=== PATIENT | female | born 1985 | race Caucasian/White ===

== ENCOUNTER 2018-10-10 11:26 | Inpatient (IN) | payer OTHER ==
--- NOTE | 2018-10-09 21:46 | PDGENHP ---
History and Physical - Chief Complaint RIGHT HIP PAIN - History of Present Illness 1. Bilateral~Femoroacetabular impingement (SATISH) Cam type, labral tear 2. Bilateral~Hip Dyplasia 3. 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 Jenns~right~hip pain started worsening in June 2018, with~some~recalled trauma or injury~(had to walk her horse 8 mi in barn boots on uneven surface), and with~some~previous complaints~for the year prior with lateral hip/knee pain. ~Yuryhas~a known history of hip dysplasia -- she was referred by Dr. Romano' s office for further evaluation. Presentation today is of~anterior~right~hip pain both superficial and deep with occasional C-shaped symptoms. ~The hip~does~wake her~at night and~does~click and catch on~her. Sitting~can be uncomfortable~for her.~Yurydoes not~report suffering from lower back pain episodes. Yuryhas~participated in physical therapy (January 2018-Jun 2018)~and has~tried other conservative measures including dry needling, rolfing, cupping.~She~has not~received sufficient symptomatic improvement. Yuryhas~utilized medication for pain management, including NSAID.~Yuryhas used medication intermittently since symptom onset. Yurydenies issues with the left~hip, though feels that it does get worn out as compensation for the right.~~ Yuryunderstands that~eneida~has a hip and pelvis problem which should be researched and wishes to get a better understanding of~her~hip status, followed by an establishment of a treatment strategy, hoping~eneida~would be able to get back to~her~well being active life. History: Past medical history:~~ None which is relevant~ Relevant familial history:~Dad - AK. Mom, Dad - stroke. Past surgical history:~ No. Surgery Anesthesia Year Outcome 1 Hemorrhoid removal General 2008 Good 2 Gum surgery Gas 2015 Infection Yurydenies problematic issues with general anesthesia in the past. I have reviewed, verified and agree with the past medical, surgical, family and social history. Current Medications:~has a current medication list which includes the following prescription(s): codeine-guaifenesin 10-100 mg per 5 ml. ALLERGIES:~is allergic to penicillins. Objective: Physical Examination: Yuryis 5~feet~5~inches tall and weighs~147~Lbs. Shoe size~7.5. Yuryis AAO x3; she~is well-nourished, in NAD. Skin is warm and dry. ~ Breathing is non-labored. ~CV with RRR by pulse. Abdomen is soft, NTND. Currently,~eneida~walks with a~normal~gait. Trendelenburg sign is~negative~and proprioception~is normal,~both~sides. She~presents~with moderate~signs of joint laxity.~Beightons Score:~7 (all but knees) She~is fit looking. ~~ Lower spine examination is~negative~for sciatic or femoral nerve irritation with negative~SLR &~femoral stretch tests. Range of motion of the spine is normal~for flexion, extension, and rotations,~with no~associated pain. Strength, Sensation and pulses are~normal -~bilaterally Ankles and knees exams are~normal~and~no~mal-alignment is evident.~ She~has~no leg length discrepancy. Thigh circumference is~symmetric~with no evidence for muscle atrophy~on both~ sides. Hip ROM (degrees): FL ER At 90~hip FL IR At 90~hip FL AB AD EX IR Neutral hip ER Neutral hip R 110 45 30p 45 5 5 35 50 L 110 45 40 50 5 5 40 45 Specific hip and pelvis tests: Impingement Test MORIAH Roll Add. Longus R +++ +++ +++ Negative L Negative Negative Negative Negative Glut. Med ITB Posterior Imp R Negative 4+/5 strength ++ 4+/5 strength +++~(anterior) L Negative 5/5 strength Negative 5/5 strength Negative Squeeze test measured~strong Bony Symphysis pubis is~pain free~to touch while concentric activity of the rectus abdominis, does not~produce pain at its insertion. Ilio Psos specific tests are~positive for pain during cycling for~the right hip~ and remarkable for no snap HF has~pain~the right hip. Lateral, posterior~capsule tenderness Right side Greater trochanteric burse is~pain free~on both hips. Piriformis tests: FAIR is~negative,~with no~local signs of neuritis related to sciatic nerve. SIJs examination is~normal~with~normal~MORIAH in relation and local tenderness. Hamstrings tests are~negative~tendinopathy both hips. On a daily basis, the following percentages reflect~Martina's overall total pain: Deep hip:~>90%~anterior and remaining 10% lateral capsule Imaging: Radiology studies which I~have personally reviewed, analyzed and measured are below: XR: AP of the hip and pelvis: Performed in a~fair~technique Coccyx to pubic symphysis distance~0~cm. No~degrees caudal/cephal annotation [place]~Lines are preserved. Minimal~Pathological signs are seen in the Symphysis Pubis.~ No~Pathological signs are seen at the Ischial~tuberosity. ~ Specific measurements show: NSA~ LCE Sourcil~Angle Sharp's angle Lat. Cam Lat. Pincer C.Over~sign Head~Coverage % ATDmm R 132 18 16 41 Neg Neg Neg 77% 27.9 L 133 19 11 38 Neg Neg Neg 75% 29.1 Pos. wall sign ISS NAD ~~Dysplasia Comments R + Negative 19.3~mm ++ L + Negative 16.4~mm ++ Small lateral ossification Sclerosis Sup. Lat. OA Cysts Joint Space-WBZ Joint Space-Medial R Negative Negative Negative 5.5~mm 3.8~mm L Negative Negative Negative 5.2~mm 3.4~mm X Table lateral: Anterior cam lesion is~seen~on the right hip, no Jefferson lateral of left side. Alpha Angle: ~ Right~58~degrees MRI shows:~07/24/18 R hip - Good cartilage quality, no acetabular cysts or edema, large labrum with tear. CT: 07/24/18 -~ Right hip:~No acetabular cysts. Minimal cam 12-3 o'clock. Lateral center edge angle: 22 degrees * Anterior center edge angle: 39 degrees Equatorial acetabular version angle: 19 degrees anteverted. Cranial acetabular version angle: 20 degrees anteverted. Femoral neck shaft angle: 137 degrees Femoral neck version angle: 11 degrees anteverted Femoral shaft torsion angle: 3 degrees internally rotated Left hip:~No acetabular cysts. Minimal cam 12-3 o'clock. Lateral center edge angle: 24 degrees* Anterior center edge angle: 32 degrees Equatorial acetabular version angle: 27 degrees anteverted. * Cranial acetabular version angle: 25 degrees anteverted.* Femoral neck shaft angle: 139 degrees Femoral neck version angle: 10 degrees anteverted Femoral shaft torsion angle: 11 degrees internally rotated Impression and plan:~ Martina~is a~32 y.o.~active female~suffering from symptomatic~Bilateral~ Femoroacetabular impingement (SATISH) Cam type,~Bilateral~Hip Dyplasia (RIGHT symptomatic)~causing significant disability to~her~and altering~her~sport and life activities. Physical examination, imaging, and~her~story correspond with the diagnosis mentioned above. I explained that hip dysplasia is a condition wherein the hip joint has excessive play~and instability due to a variety of factors, including the depth and adequacy of the socket, the orientation of the femur bone, and ligament laxity around the hip joint. Dysplasia ranges in severity from borderline to antonio, with treatment options being specific to the specific nature of the problem. Left untreated, the instability in the hip joint can cause progressive tearing of the labrum and deterioration of the surface cartilage, ultimately resulting in progressive osteoarthritis of the hip. I explained that femoroacetabular impingement (SATISH - Cam type) arises due to a bony or soft tissue conflict between the femur (ball) and acetabulum (socket) caused by an abnormality in the shape of the femoral head and neck. Over time, repetitive impingement can result in damage to the labrum and adjacent surface cartilage within the socket, ultimately giving rise to progressive osteoarthritis of the hip. I explained that although a labral tear can be a source of pain, it is rarely the root of the problem and typically occurs secondary to an underlying abnormality in the shape and mechanics of the hip joint. I reviewed conservative treatment options for Dysplasia and SATISH including activity modification to avoid positions of impingement or instability, physical therapy, non-steroidal anti-inflammatory medications, and various injections (corticosteroid and PRP) aimed at reducing inflammation in the hip joint or/and preventing dynamic instability and impingement. PRP injections may promote healing and reduce symptoms in certain cases but it will not repair chronically damaged tissue. Although these measures may help to buy time~and reduce current level of symptoms, they are not a definitive solution to the problem given the underlying abnormality in the shape of the hip joint. Patients who have failed conservative management and continue to experience symptoms are candidates for definitive surgical treatment, which may consist of hip arthroscopy alone or in combination with more invasive bony realignment procedures of the hip socket and/or femur called periacetabular osteotomy (SAMI) or derotational femoral osteotomy (DFO). Hip arthroscopy typically includes treating the labrum with either repair or reconstruction of the torn labrum; as well as addressing the underlying abnormalities by restoring the normal shape to the hip joint. If the cartilage is damaged a Microfracture surgical procedure may also be necessary to help stimulate the growth of fibrocartilage. If a patient requires a labral reconstruction or a Microfracture, the initial rehabilitation from the surgery may take longer, but the fdc results are typically favorable. I reviewed the technical aspects of periacetabular osteotomy (SAMI) including risks, benefits, and expected course of recovery. Martina understands that SAMI is an inpatient procedure carried out through two medium sized incisions on the front and back of the hip joint. The hip socket is cut, realigned, and stabilized with 2 3 internal screws. Risks include infection, bleeding, injury to nearby nerves or vessels, stiffness, persistent pain, instability, failure of bony healing, implant related complications, and venous thromboembolic disease. Rarely, revision surgery may be required to address these problems. Risks, potential complications, side effects and recovery from surgical procedure were discussed in length. We explained how this surgery is an open procedure, and though patients tend to do well in the long-term, it involves significant pain in the first 2-4 weeks post-op and a rather lengthy rehab. Overall recovery takes approximately 6 12 months depending on the extent of damage and degree of repair. Martina understands that she will undergo hip arthroscopy 1 week prior to the SAMI to address damage inside the hip joint. Martina understands that hip arthroscopy and SAMI are two separate procedures that are best performed one week apart, with the arthroscopy commencing first to "tighten up" any pathology evident in the hip joint (labral repair, etc.) and the SAMI open procedure occurring 7-10 days later to realign the acetabulum. Martina~will review the info presented. Martina will talk with our energy scheduler about possible surgery dates~-- she will try to coordinate scope with Dr. Romano's office 1 week prior to SAMI with us.~However, she would like to have surgery as soon as possible since she is getting in May~-- to help facilitate this, we recommended that she could consider having a hip scope with Dr. Romano as soon as possible so that she could accommodate any cancellations in our schedule for a SAMI~while still reserving the next available surgical date on our schedule in case there are no cancellations.~She understands this will lengthen her overall length of rehab if there is a significant time interval between scope and SAMI. Martina~is happy with this plan. I have also supplied~her~with handouts, outlining the expected surgical treatment and rehab involved. I wish~Martina~all the best, ~~ Inga Avilez MD History Information - Allergies/Home Medication List Allergies/Adverse Reactions: clindamycin Allergy (Verified 10/05/18 11:28) Swelling/neck,face,throat latex Allergy (Verified 10/05/18 11:28) Penicillins Allergy (Verified 10/05/18 11:28) Swelling/neck,face,throat Home Medications: Aspirin [Aspirin 325 mg (*)] 325 mg PO DAILY 10/05/18 [Last Taken Unknown] I have personally reviewed and updated: medical history - Social History Smoking Status: Former smoker Review of Systems Review of Systems: Physical Exam Physical Exam:
[2018-10-10] MEDS ORDERED: TRANEXAMIC ACID 1,000 MG in NS 100 ML IV ONE (11:37)
[2018-10-10] MEDS ORDERED: PREGABALIN 150 MG CAP PO ONE (11:37)
[2018-10-10] MEDS ORDERED: ACETAMINOPHEN 500 MG TAB PO ONE (11:37)
[2018-10-10] MEDS ORDERED: ceFAZolin 2 GM/DEXTROSE 100 ML IV ONE (11:37)
[2018-10-10] MEDS ORDERED: SCOPOLAMINE HYDROBROMIDE 1 MG/3 DAYS PATCH TD ONE (11:37)
[2018-10-10] MEDS ORDERED: LR 1,000 ML IV ONE (11:48)
[2018-10-10] MEDS ORDERED: MIDAZOLAM 2 MG/2 ML VIAL IVP ONE (14:01)
--- NOTE | 2018-10-10 14:04 | PDANEPAE ---
ANE History of Present Illness 32 year old with hip dysplasia ANE Past Medical History - Cardiovascular History Hx Hypertension: No Hx Arrhythmias: No Hx Chest Pain: No Hx Coronary Artery / Peripheral Vascular Disease: No Hx CHF / Valvular Disease: No Hx Palpitations: No - Pulmonary History Hx COPD: No Hx Asthma/Reactive Airway Disease: No Hx Recent Upper Respiratory Infection: No Hx Oxygen in Use at Home: No Hx Sleep Apnea: No Sleep Apnea Screening Result - Last Documented: Negative - Neurologic History Hx Cerebrovascular Accident: No Hx Seizures: No Hx Dementia: No - Endocrine History Hx Diabetes: No - Renal History Hx Renal Disorders: No - Liver History Hx Hepatic Disorders: No - Neurological & Psychiatric Hx Hx Neurological and Psychiatric Disorders: No - Cancer History Hx Cancer: No - Congenital Disorder History Hx Congenital Disorders: No - GI History Hx Gastrointestinal Disorders: No - Other Health History Other Health History: none - Chronic Pain History Chronic Pain: No - Surgical History Prior Surgeries: right hip scope 2-3 weeks ago. moles removes ANE Review of Systems Review of systems is: negative Review of Systems: - Exercise capacity METS (RN): 6 METS ANE Patient History - Allergies Allergies/Adverse Reactions: clindamycin Allergy (Verified 10/05/18 11:28) Swelling/neck,face,throat latex Allergy (Verified 10/05/18 11:28) Penicillins Allergy (Verified 10/05/18 11:28) Swelling/neck,face,throat - Home Medications Home Medications: Aspirin [Aspirin 325 mg (*)] 325 mg PO DAILY 10/05/18 [Last Taken 09/28/18] - NPO status NPO Status: no food or drink >8 hours NPO Since - Liquids (Date): 10/10/18 NPO Since - Liquids (Time): 11:00 NPO Since - Solids (Date): 10/09/18 NPO Since - Solids (Time): 21:30 - Anes Hx Anes Hx: no prior problems - Smoking Hx Smoking Status: Former smoker - Family Anes Hx Family Hx Anesthesia Complications: none ANE Labs/Vital Signs - Labs Result Diagrams: 10/10/18 11:37 - Vital Signs Blood Pressure: 109/73 Heart Rate: 68 Respiratory Rate: 15 O2 Sat (%): 95 Height: 165.1 cm Weight: 67.132 kg ANE Physical Exam - Airway Neck exam: FROM Mallampati Score: Class 1 Mouth exam: normal dental/mouth exam - Pulmonary Pulmonary: no respiratory distress - Cardiovascular Cardiovascular: regular rate and rhythym - ASA Status ASA Status: I ANE Anesthesia Plan Anesthesia Plan: general endotracheal anesthesia, spinal
[2018-10-10] MEDS ORDERED: CITRATE DEXTROSE SOLN 500 ML BAG ONE ×2 (14:28→18:12)
[2018-10-10] MEDS ORDERED: fentaNYL 100 MCG/2 ML INJ ONE ×2 (14:31→20:13)
[2018-10-10] MEDS ORDERED: PROPOFOL/EMULSION 500 MG/50 ML BOTTLE IV ONE ×4 (14:31→18:28)
[2018-10-10] MEDS ORDERED: PROPOFOL 200 MG/20 ML VIAL ONE (14:31)
[2018-10-10] MEDS ORDERED: morphINE PF 5 MG/10 ML INJ ONE (14:34)
[2018-10-10] MEDS ORDERED: NS IV ONE (18:00)
[2018-10-10] MEDS ORDERED: TRANEXAMIC ACID IV ONE (18:00)
[2018-10-10] MEDS ORDERED: ONDANSETRON DISINTEGRATING 4 MG TAB PO PRN (19:29)
[2018-10-10] MEDS ORDERED: MAGNESIUM HYDROXIDE 30 ML UDCUP PO PRN (19:29)
[2018-10-10] MEDS ORDERED: POLYETHYLENE GLYCOL 3350 17 GM PKT PO PRN (19:29)
[2018-10-10] MEDS ORDERED: BISACODYL 10 MG SUPP PR PRN (19:29)
[2018-10-10] MEDS ORDERED: ONDANSETRON 4 MG/2 ML VIAL IVP PRN ×2 (19:29→20:07)
[2018-10-10] MEDS ORDERED: LACTULOSE 20 GM/30 ML UDCUP PO PRN (19:29)
[2018-10-10] MEDS ORDERED: NALOXONE HCL 0.4 MG/ML INJ IVP PRN ×2 (19:30→20:07)
[2018-10-10] MEDS ORDERED: HYDROmorphONE/DILAUDID 6 MG/30 ML PCA IV PRN (19:30)
[2018-10-10] MEDS ORDERED: oxyCODONE IR 5 MG TAB PO PRN (19:31)
[2018-10-10] MEDS ORDERED: PROMETHAZINE HCL 25 MG/ML INJ IVP PRN (20:07)
--- NOTE | 2018-10-10 20:08 | POSTANESTH ---
Post Anesthetic Evaluation Cardiovascular Status: Normal, Stable Respiratory Status: Normal, Stable Level of Consciousness/Mental Status: Can Participate in Eval, Mildly Sleepy, Arousable Pain Control: Adequate, Prn Tx Ordered Nausea/Vomiting Control: Adequate, Prn Tx Ordered Complications Possibly Related to Anesthesia: None Noted
[2018-10-10] MEDS: fentaNYL 100 MCG/2 ML INJ IVP PRN ×2 (20:15→20:22)
[2018-10-10] MEDS ORDERED: NALOXONE HCL 0.4 MG/ML INJ ONE (20:29)
[2018-10-10] MEDS: NAPROXEN SODIUM 220 MG TAB PO SCH (23:44)
[2018-10-10] MEDS: NS 1,000 ML IV SCH (23:44)
[2018-10-10] MEDS: oxyCODONE IR 5 MG TAB PO SCH (23:45)
[2018-10-10] MEDS: SENNOSIDES/DOCUSATE SODIUM TAB PO SCH (23:46)
[2018-10-11] MEDS: oxyCODONE IR 5 MG TAB PO SCH ×6 (02:56→21:58)
--- NOTE | 2018-10-11 07:45 | PDMN ---
Medical Necessity Medical necessity: MCG GRG Musculoskeletal sgy OP: Elysia GALLARDO
[2018-10-11] MEDS: NAPROXEN SODIUM 220 MG TAB PO SCH ×3 (08:15→21:57)
[2018-10-11] MEDS: SENNOSIDES/DOCUSATE SODIUM TAB PO SCH ×2 (08:17→21:58)
[2018-10-11] MEDS: PANTOPRAZOLE SODIUM 40 MG TAB PO SCH (08:17)
[2018-10-11] MEDS: diphenhydrAMINE 25 MG CAP PO PRN ×2 (08:40→17:57)
[2018-10-11] MEDS: NS 1,000 ML IV SCH ×2 (09:22→19:21)
--- NOTE | 2018-10-11 10:11 | GCON ---
[f rep st] CONSULTATION REFERRING PHYSICIAN: Hari Drake MD REASON FOR CONSULTATION: Medical management. HISTORY OF PRESENT ILLNESS: This patient is a 32-year-old female who has no significant past medical history who has been having worsening right hip pain as well as right knee pain since June of 2018. In talking with her, she has been having chronic pain to her right hip, but it became more acute recently. She had to walk her horse approximately 8 miles wearing barn boots on an uneven surface and started having worsening hip pain and knee pain. She saw her primary care provider, thinking she had a tight psoas. Subsequently, she had an x-ray that confirmed she had hip dysplasia and was referred to Dr. Drake for further care. She is status post a right periacetabular osteotomy. During my interview, she is feeling quite well. She has been able to get out of bed. Her blood pressure has been low, but she is overall asymptomatic with this. She denies any chest pain, shortness of breath. No changes in her bowel pattern. No pain with urination. PAST MEDICAL HISTORY: Hip dysplasia. PAST SURGICAL HISTORY: Hemorrhoidectomy in 2007. 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 She has one son. She is engaged. She does not smoke. She rarely drinks alcohol. She is a very active woman. She rides horses frequently. She works out 5-6 days a week. She has done obstacle courses and does 5 and 10 K runs. FAMILY HISTORY: Her father had an AK and stroke. Her mother had a stroke. ALLERGIES: Penicillin causes swelling of her face. She is also allergic to latex, which causes mouth sores. HOME MEDICATIONS: Aspirin 325 mg daily. REVIEW OF SYSTEMS: A 10-point review of system was performed. Any pertinent positives are in the HPI and Past Medical History. PHYSICAL EXAM: GENERAL: This patient is a 32-year-old female who appears to be in good health. VITAL SIGNS: Blood pressure is 90/42, heart rate is 66, respiratory rate is 16, O2 saturation on room air 97%, temperature is 37.1 Celsius. EYES: Pupils are equal and reactive. EOMs are intact. No conjunctival injection noted. ENT: Normal ears. Hearing intact. Oral airway is moist. NECK: Trachea midline. CARDIOVASCULAR: Regular rate and rhythm. No murmurs, rubs, or gallops noted. CHEST: Lungs with normal respiratory effort. Clear without wheezing, rales, rhonchi. ABDOMEN: Soft, nontender. SKIN: She has a tattoo to the right hip area. She has some swelling there. MUSCULOSKELETAL: Not evaluated. PSYCHIATRIC: She is alert and oriented. Normal mood, affect. Normal judgment, insight, and normal memory. DATA: Reviewed. A CBC shows a white blood cell count of 15.98, hemoglobin of 11, hematocrit 32, platelet count of 169. Chemistry: Sodium is 134, potassium 4.4, chloride of 106, BUN 16, creatinine 0.8, glucose of 111, calcium 8.1. ASSESSMENT AND PLAN: 1. Leukocytosis, likely stress induced. Will recheck labs in the morning. 2. Expected blood loss anemia. Will follow. 3. Mild hyponatremia, likely due to not taking in adequate solute at this time. 4. Hyperglycemia, stressed induced. 5. Hypotension. She is overall asymptomatic. 6. Hip dysplasia. She is status post a right periacetabular osteotomy, care per Orthopedics. 7. Deep venous thrombosis prophylaxis, on aspirin therapy per Orthopedics. 8. History of hemorrhoidectomy. Bowel protocol. Thank you for this consultation. The hospitalist team will continue to follow this delightful patient during her hospital stay. /[id number]/MODL MTDD
--- NOTE | 2018-10-11 11:17 | PDPAINCON ---
Pain Management Consultation Patient referred by : Mary Walls - Subjective Pain at rest (/10): 3 Pain is: low, well controlled Side effects include: itchiness Activity: unable to ambulate Comments: Pt became dizzy attempting to get out of bed - Objective Technique: spinal opioid Site: lumbar Sensory and motor exam: block has resolved, no apparent ill effects Vital signs: stable - Assessment/Plan Assessment/Plan: pain well-controlled, continue current mgmt
--- NOTE | 2018-10-11 12:51 | ASMTCMCOM ---
CM Note CM Note Notes: Pt had planned surgery for dysplasia. Pt resides with spouse. PT re home/outpatient. Anticipate pt will d/c when medically stable following MD rec for outpatient. No CM d/c needs identified. CM available for changes/needs. D/c plan of care: Independent Date Signed: 10/11/2018 12:51 PM Electronically Signed By:JUDD Castaneda
--- NOTE | 2018-10-11 22:07 | SOAPPROG ---
SOAP Progress Note Assessment/Plan: Assessment: 32 yo F POD#1 s/p R SAMI, some post-operative hypotension and dizziness while OOB. 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 Drake prior to discharge Trend BP, Hct, associated symptoms to determine need for blood transfusion -- not indicated at this point Anticipate stable for discharge Tuesday or Tuesday pending progress 10/11/18 22:04 Subjective: Pt reports dizziness and feeling of limb heaviness while OOB today. 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 No CP/SOB/N/V. Objective: Vital Signs Temp Pulse Resp BP Pulse Ox 37.0 C 86 18 84/45 L 97 10/11/18 19:56 10/11/18 19:56 10/11/18 19:56 10/11/18 19:56 10/11/18 19:56 Laboratory Results 10/11/18 04:42 10/11/18 04:42 10/10/18 10/11/18 10/12/18 05:59 05:59 05:59 Intake Total 2400 1700 Output Total 2800 2250 Balance -400 -550 Gen: NAD R hip dressings c/d/i Normal post-op ecchymosis/swelling 5/5 TA, GSC, EHL SILT throughout foot ICD10 Worksheet Patient Problems: Problems Problem Status Onset Hip dysplasia Acute - ICD10 Problem Qualifiers (1) Hip dysplasia
[2018-10-12] MEDS: oxyCODONE IR 5 MG TAB PO SCH ×6 (02:24→22:00)
[2018-10-12 04:52] LABS: PLATELET COUNT 130 10^3/uL (150-400)
[2018-10-12] MEDS: NS 1,000 ML IV SCH (05:23)
[2018-10-12] MEDS: diphenhydrAMINE 25 MG CAP PO PRN ×2 (05:56→18:29)
[2018-10-12] MEDS: PANTOPRAZOLE SODIUM 40 MG TAB PO SCH (07:59)
[2018-10-12] MEDS: SENNOSIDES/DOCUSATE SODIUM TAB PO SCH ×2 (07:59→22:01)
[2018-10-12] MEDS: NAPROXEN SODIUM 220 MG TAB PO SCH ×3 (08:00→22:00)
[2018-10-12] MEDS: DIAZEPAM 2 MG TAB PO PRN ×2 (11:33→22:04)
[2018-10-12] MEDS: ACETAMINOPHEN 325 MG TAB PO PRN ×2 (11:33→18:08)
--- NOTE | 2018-10-12 14:12 | HOSPPROG ---
Hospitalist Progress Note Assessment/Plan: 32 year old female with hip dysplasia admitted for periacetabular osteotomy post op blood loss anemia- H/H down again today. Able to ambulate, low BP but stable. If H/H drops below 7/21 will transfuse Hypotension- due to blood loss. If patient becomes symptomatic will give a bolus and recheck H/H Leukocytosis- reactive. No evidence of infection Hyponatremia- Likely hypovolemic. Repeat Serum sodium in am. Hyperglycemia- presumed to be stress induced. follow Hip dysplasia- post op status post SAMI. DVT prophy- on asa. Subjective: gets winded with ambulation. Feels tired. No faintness or dizziness. pain well controlled. Objective: Vital Signs Temp Pulse Resp BP Pulse Ox 36.6 C 83 16 97/60 L 98 10/12/18 11:51 10/12/18 11:51 10/12/18 11:51 10/12/18 11:51 10/12/18 11:51 Laboratory Results 10/12/18 04:28 10/11/18 04:42 10/11/18 10/12/18 10/13/18 05:59 05:59 05:59 Intake Total 2400 4300 250 Output Total 2800 4525 875 Balance -520 -460 -232 - Physical Exam Constitutional: no apparent distress, appears nourished, not in pain Eyes: PERRL, anicteric sclera, EOMI Ears, Nose, Mouth, Throat: moist mucous membranes, hearing normal, ears appear normal, no oral mucosal ulcers Cardiovascular: regular rate and rhythym, no murmur, rub, or gallop Respiratory: no respiratory distress, no rales or rhonchi, clear to auscultation Gastrointestinal: normoactive bowel sounds, soft, non-tender abdomen, no palpable masses Genitourinary: no bladder fullness, no bladder tenderness, no renal bruits Skin: no rashes or abrasions, no fluctuance, no induration Musculoskeletal: full muscle strength, no muscle tenderness, normal joint ROM Neurologic: AAOx3, sensation intact bilaterally Psychiatric: interacting appropriately, not anxious, not encephalopathic, thought process linear Lymph, Heme, Immunologic: no cervical LAD, no supraclavicular LAD ICD10 Worksheet Patient Problems: Problems Problem Status Onset Hip dysplasia Acute
[2018-10-12] MEDS: ASPIRIN EC 81 MG TAB PO SCH (22:00)
[2018-10-13] MEDS: oxyCODONE IR 5 MG TAB PO SCH ×3 (02:00→09:21)
[2018-10-13 05:01] LABS: PLATELET COUNT 136 10^3/uL (150-400)
--- NOTE | 2018-10-13 07:02 | SOAPPROG ---
JERICHO Progress Note Assessment/Plan: Assessment: 2nd post op day Right Periacetabular Osteotomy Plan: Pelvis X-ray DC home today 10/13/18 06:59 Subjective: LATE ENTRY: Pt seen last night at 2044 Last night Martina was doing well. Her pain was well controlled with Oxycodone, Rodriguez out, she'd been up with PT/OT. She denied any cp, sob, or nausea. She vocalized wanting to go home the following day. Objective: Vital Signs Temp Pulse Resp BP Pulse Ox 36.8 C 70 17 89/50 L 95 10/13/18 04:00 10/13/18 04:00 10/13/18 04:00 10/13/18 04:00 10/13/18 04:00 Laboratory Results 10/13/18 04:35 10/11/18 04:42 10/12/18 10/13/18 10/14/18 05:59 05:59 05:59 Intake Total 4300 500 Output Total 4525 975 Balance -225 -475 Well appearing in NAD Right hip: some edema and ecchymosis some thigh numbness NVI distally Full ROM of foot and ankle - Pending Discharge Pending Discharge Within 24 Hours: Yes Pending Discharge Date: 10/14/18 Pending Discharge Time: 11:00 ICD10 Worksheet Patient Problems: Problems Problem Status Onset Hip dysplasia Acute
[2018-10-13 07:16] VITALS: BP 92/55
[2018-10-13] MEDS: NAPROXEN SODIUM 220 MG TAB PO SCH (08:12)
[2018-10-13] MEDS: diphenhydrAMINE 25 MG CAP PO PRN (08:12)
[2018-10-13] MEDS: SENNOSIDES/DOCUSATE SODIUM TAB PO SCH (08:13)
[2018-10-13] MEDS: ASPIRIN EC 81 MG TAB PO SCH (08:14)
[2018-10-13] MEDS: PANTOPRAZOLE SODIUM 40 MG TAB PO SCH (08:14)
[2018-10-13] MEDS: DIAZEPAM 2 MG TAB PO PRN (09:21)
[2018-10-13] MEDS: ACETAMINOPHEN 325 MG TAB PO PRN (09:21)
--- NOTE | 2018-10-13 10:58 | HOSPPROG ---
Hospitalist Progress Note Assessment/Plan: 32 year old female with hip dysplasia admitted for periacetabular osteotomy post op blood loss anemia- H/H stable from yesterday. no evidence of bleeding. Hypotension- due to blood loss. If patient becomes symptomatic will give a bolus and recheck H/H Leukocytosis- reactive. No evidence of infection Hyponatremia- Likely hypovolemic. Repeat Serum sodium in am. Hyperglycemia- presumed to be stress induced. follow Hip dysplasia- post op status post SAMI. DVT prophy- on asa. Subjective: some nausae this am, which seems to have resolved. Objective: Vital Signs Temp Pulse Resp BP Pulse Ox 36.9 C 78 15 92/55 L 94 10/13/18 07:15 10/13/18 07:15 10/13/18 07:15 10/13/18 07:15 10/13/18 07:15 Laboratory Results 10/13/18 04:35 10/11/18 04:42 10/12/18 10/13/18 10/14/18 05:59 05:59 05:59 Intake Total 4300 500 Output Total 3042 101 Balance -225 -382 ICD10 Worksheet Patient Problems: Problems Problem Status Onset Hip dysplasia Acute
--- NOTE | 2018-10-13 13:47 | ASMTLACE ---
CANDELARIOE Length of stay for Answers: 4-6 days current admission Acuity / Level of Answers: Yes Care: Did the patient have an inpatient admission? # of Emergency department Answers: 0 visits in the last 6 months Score: 7 Date Signed: 10/13/2018 01:45 PM Electronically Signed By:JUDD Castaneda
--- NOTE | 2018-10-17 22:05 | GDS ---
[f rep st] DISCHARGE SUMMARY Martina underwent a right periacetabular osteotomy for right hip acetabular dysplasia on October 10, 2018 . Intraoperatively, Rodriguez and spinal catheters were placed. She was well pain managed postoperative ly with the spinal RAIL SPECIALIST and oral analgesics. She was up with Physical Therapy the first day, and her RAIL SPECIALIST was discontinued on that day. Rodriguez was discontinued on her second postoperative day. Pelvis x- rays on her third postoperative day showed good bone and screw fixation, and she was discharged that day in good condition. She will be wearing sequential compression devices 24 hours a day, 7 days a w kotlik for 2 weeks, and thereafter only at night for another week. She will be taking 81 mg baby aspiri n daily for 1 month. Both of these for DVT prophylaxis. She will be nonweightbearing on right lower extremity for 2 weeks until she is seen in the clinic for postoperative check, at which time, follow up x-rays will be obtained. She was given a full set of discharge instructions, and was discharged i n good condition. /[id number]/MODL
== END 2018-10-13 11:23 | disposition home or self-care (01) | DRG 516 ==
LOC: F1N 11:26 → F3N 15:54
PROVIDERS: ADMIT Orthopaedic Surgery Sports Medicine; ATTEND Orthopaedic Surgery Sports Medicine
PROC: 0QS404Z Reposition Right Acetabulum with Internal Fixation Device, Open Approach (ICD-10-PCS; principal; 2018-10-10 12:45)
DX: Q65.89 Other specified congenital deformities of hip (principal); D62 Acute posthemorrhagic anemia; E87.1 Hypo-osmolality and hyponatremia; I95.81 Postprocedural hypotension; R73.9 Hyperglycemia, unspecified; Z88.0 Allergy status to penicillin
CPT/HCPCS: 97116-GP; 97162-GP; 97165-GO; C1713; J0690; J1170; J2250; J2274; J2310; J2405; J2704; J3010